=== PATIENT | female | born 1985 | race Two or more races ===

== ENCOUNTER 2017-10-09 16:25 | Emergency (ER) | payer OTHER ==
[2017-10-09 16:32] VITALS: BP 150/95; PULSE 82; RESP 18; TEMP 98.2; O2SAT 97
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
== END 2017-10-09 16:56 | disposition home or self-care (01) ==
DX: S39.92XA Unspecified injury of lower back, initial encounter (principal); V49.49XA Driver injured in collision with other motor vehicles in traffic accident, initial encounter; Y92.410 Unspecified street and highway as the place of occurrence of the external cause; Y99.8 Other external cause status; Y93.89 Activity, other specified